=== PATIENT | female | born 1950 | race Caucasian/White ===

== ENCOUNTER → 2016-12-18 | Outpatient (CLI) | payer MEDICARE, BC ==
[~2016-12-18] MED LIST: ALLERGY MEDICAT25 MG PO; BLOOD THINNER; CIPRO500 MG PO; CLINDAMYCIN HC300 MG PO; COUMADIN5 MG PO; CRESTOR10 MG PO; CRESTOR20 MG PO; Duragesic 25 M25 MCG TD; ENBREL25 MG SC; HUMIRA40 MG/0.3 SQ; INVOKANA100 MG PO; INVOKANA300 M1 PO; LISINOPRIL20 MG PO; MEDROL4 M1 PO; METFORMIN1000 MG PO; MYSOLINE50 MG PO; NITROSTAT0.4 MG SL; OCUVITE1 TA1 PO; ONGLYZA5 MG PO; ORASONE5 MG PO; OTEZLA PO; OXYCODONE AND A1 CA1 PO; OXYCODONE AND A1 TA4 PO; PERCOCET 325 MG1 TA2 PO; PREDNICOT5 MG PO; PRENATAL1 TA3 PO; PROPRANOLOL HCL40 M1 PO; PROPRANOLOL HCL40 MG PO; VENLAFAXINE HY150 MG PO; VITAMIN D PO; ZOLOFT100 MG PO
--- NOTE | ~2016-12-18 | ST ---
[place], [place] EXERCISE STRESS TEST REPORT NAME: RUBY OVALLES UNIT #: [id number] ROOM: DOCTOR: MELISSA NAYLOR MD BIRTHDATE: [birth year] DOS: 12/18/2016 Lexiscan portion of the Lexiscan Cardiolite stress test The patient with chest discomfort. Baseline cardiogram sinus rhythm with left axis deviation, left anterior fascicular block, right bundle branch block with nonspecific ST-T changes. 0.4 mg of Lexiscan, duration of 10 seconds. With Lexiscan, no new EKG changes. The patient had no chest discomfort. No dysrhythmia. Blood pressure and heart rate response was normal. FINAL IMPRESSION: No EKG changes with Lexiscan. No chest pain with Lexiscan. No dysrhythmia with Lexiscan. Blood pressure and heart rate response was normal. Nuclear images will be reported separately. MELISSA NAYLOR MD CM:STRESS:EXERCISE STRESS TEST REPORT [id number] MELISSA NAYLOR MD
== END | disposition home or self-care (01) ==
LOC: CARD 03:23
DX: I51.7 Cardiomegaly (principal)

== ENCOUNTER → 2017-06-03 | Day surgery (SDC) | payer MEDICARE, BC ==
[2017-05-30 09:37] VITALS: BP 167/92
[2017-05-30 10:30] LABS: BASO # 0.1 10*3/uL (0.0-0.1); BASO % 0.5 % (0.0-1.0); EOS # 0.2 10*3/uL (0.0-0.4); EOS % 1.8 % (1.0-4.0); HEMATOCRIT 41.9 % (37.0-47.0); HEMOGLOBIN 13.8 g/dl (12.0-16.0); LYMPH # 3.2 10*3/uL (1.3-4.4); LYMPH % 30.2 % (27.0-41.0); MEAN CELL VOLUME 89.1 fl (81.0-99.0); MEAN CORPUSCULAR HGB 29.4 pg (27.0-31.0); MEAN CORPUSCULAR HGB CONC 32.9 g/dl (33.0-37.0); MEAN PLATELET VOLUME 10.6 fl (9.6-12.3); MONO # 0.9 10*3/uL (0.1-1.0); MONO % 8.6 % (3.0-9.0); NEUT # 6.2 10*3/uL (2.3-7.9); NEUT % 58.5 % (47.0-73.0); PLATELET COUNT AUTOMATED 217 10*3/uL (130-400); RED CELL DISTRI WIDTH 12.9 % (0-14.5); WHITE BLOOD COUNT 10.6 10*3/uL (4.8-10.8)
[~2017-06-03] VITALS: Ht 157.4 cm; Wt 73.0 kg
[~2017-06-03] MED LIST changes: -CRESTOR10 MG PO; +CRESTOR20 M1 PO; +FISH OIL CONC1000 M1 PO; +MASON NATURAL500 MG PO; +PLAVIX75 M1 PO; +TOUJEO SOL300 UNIT/1 SQ
--- NOTE | ~2017-06-03 | O ---
[place], [place] OPERATIVE NOTE NAME: RUBY OVALLES UNIT #: [id number] ROOM: DOCTOR: CHARLIE PRUITT MD BIRTHDATE: [birth year] DOS: 06/03/2017 PREOPERATIVE DIAGNOSES: Large cluster of left inguinal inclusion cyst, unresponsive to conservative medical therapy and with significant discomfort. POSTOPERATIVE DIAGNOSES: Large cluster of left inguinal inclusion cyst, unresponsive to conservative medical therapy and with significant discomfort. OPERATION: Excision of the cluster of inclusion cyst from the left inguinal area. SURGEON: Charlie Pruitt MD. ANESTHESIA: MAC with 1% lidocaine local anesthetic. ESTIMATED BLOOD LOSS: Minimal. REPLACEMENTS: IV fluids. COMPLICATIONS: There were no complications. CONDITION: The patient's condition to recovery stable. OPERATIVE SUMMARY: The patient was taken to the operating room in supine position. MAC anesthesia, prepped and draped in routine manner. The cluster of inclusion cyst was identified in the left inguinal area. An elliptical incision was made around these, but being careful to remain fairly superficial, obviously due to the important structures just beneath this. The clusters of cyst were excised without complication. After achieving reasonable hemostasis, we reapproximated the subcutaneous tissue with several interrupted 3-0 chromic sutures and then closed the skin with a running subcuticular 3-0 Monocryl suture. Steri-Strips and a dressing were placed. Good hemostasis was noted. The patient was cleaned off, awakened and then transferred to recovery in satisfactory condition with stable vital signs, good hemostasis and stable sponge and instrument count. I should also as an addendum that I did use 1% lidocaine local anesthetic in an effort to try and also help with not only intraoperative discomfort, but also postop pain relief. [place], [place] OPERATIVE NOTE NAME: RUBY OVALLES UNIT #: [id number] ROOM: DOCTOR: CHARLIE PRUITT MD BIRTHDATE: [birth year] CHARLIE PRUITT MD CM:OPRECORD:OPERATIVE NOTE [id number] DANIEL PRUITT MD 06/04/17 0624 interface
--- NOTE | ~2017-06-03 | WRIGHTHP ---
[place], [place] PATIENT HISTORY AND PHYSICAL EXAM NAME: RUBY OVALLES UNIT #: [id number] ROOM: DOCTOR: CHARLIE LOPEZ MD BIRTHDATE: [birth year] DOS: 06/03/2017 HISTORY OF PRESENT ILLNESS: This patient is a 66-year-old white female who was referred by Dr. Epstein with persistence of left inguinal inclusion cysts that have been very resistant to 3 different antibiotic courses of therapy. According to the patient, about 5 years ago, I had helped her again by draining a significant with persistent inguinal inclusion cyst as well. She stated that she had been fine until April when she developed this large and very tender cluster of hard, raised, and occasionally draining inclusion cyst in the left inguinal area. The patient's exam of the same date, 05/27, she did have a cluster of inclusion cysts with three draining sites, one of which was draining a small amount of pus. The area was quite indurated and tender and very nodular in appearance. The patient and I had a good discussion in regard to the valiant effort Dr. Epstein has made to try to eliminate this in a conservative way with warm soaks and antibiotics, but because of the persistence of this situation, the patient and I discussed actually removing this cluster of inclusion cysts and induration and fibrous material around them. Risks and benefits, indications, potential complications and alternatives were reviewed, understanding stated and she did sign the consent. PAST MEDICAL HISTORY: Reveals that of 2 pregnancies and 2 vaginal deliveries, one was stillborn and one was normal. 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 She has had foot surgery in the past and she has had the other inclusion cyst removed from me as I noted above. SOCIAL HISTORY: She quit smoking 3 or 6 months ago. She does not drink. MEDICATIONS: The patient takes lisinopril 20 mg daily for hypertension, metformin 1000 mg b.i.d. for diabetes, Onglyza 5 mg daily for diabetes, Invokana 300 mg daily for diabetes and finally Toujeo SoloStar 300 units/mL daily for her diabetes. REVIEW OF SYSTEMS: Otherwise stable. She has had no other significant contributing factors to the situation. FAMILY HISTORY: Reveals her father with diabetes and heart disease. Mother has diabetes and hypertension. Paternal aunt has colon cancer. PHYSICAL EXAMINATION: GENERAL: Reveals a pleasant white female in no significant distress. VITAL SIGNS: She is 5 feet and 2 inches, 161 pounds, BMI is 29.4, blood pressure 126/78, O2 sats 99% and she has no history of sleep apnea. HEENT: Stable. NECK: Stable. LUNGS: Stable. CARDIAC: Stable. BREASTS: Stable. ABDOMEN: Normal. EXTREMITIES: Grossly intact. [place], [place] PATIENT HISTORY AND PHYSICAL EXAM NAME: RUBY OVALLES UNIT #: [id number] ROOM: DOCTOR: CHARLIE LOPEZ MD BIRTHDATE: [birth year] NEUROLOGIC: Grossly intact. ABDOMEN: In the left inguinal crease, there was a cluster of inclusion cysts that I have described above. GENITOURINARY: External genitalia, vagina and cervix are all normal. Uterus is anteverted and anteflexed, normal size, configuration, nontender and mobile. Adnexa were negative. RECTAL: Negative. ASSESSMENT: The patient with prominent cluster of inclusion cysts with significant induration, draining sites, etc., in the left inguinal area that has not responded to 3 different courses of antibiotics and topical therapy. PLAN: At this time is to go to the operating room and perform an elliptical incision and literally scoop out this cluster of inclusion cysts down to the subcutaneous tissue and then go oversew this area and hopefully provider her some excellent relief. CHARLIE LOPEZ MD CM:HISPHYS:PATIENT HISTORY AND PHYSICAL EXAMINATION [id number] CHARLIE LOPEZ MD 05/31/17 0628 interface
[2017-06-03 12:15] VITALS: BP 151/85
[2017-06-03 13:30] VITALS: BP 92/40
[2017-06-03 13:46] VITALS: BP 102/56
[2017-06-03 13:54] VITALS: BP 104/60
== END | disposition home or self-care (01) ==
LOC: SDC 05-30 09:30
PROVIDERS: Obstetrics & Gynecology
DX: L72.0 Epidermal cyst (principal); E11.9 Type 2 diabetes mellitus without complications; I10 Essential (primary) hypertension; J44.9 Chronic obstructive pulmonary disease, unspecified; E78.00 Pure hypercholesterolemia, unspecified; Z87.891 Personal history of nicotine dependence; I25.2 Old myocardial infarction; Z87.440 Personal history of urinary (tract) infections; F32.9 Major depressive disorder, single episode, unspecified; Z88.0 Allergy status to penicillin; I25.10 Atherosclerotic heart disease of native coronary artery without angina pectoris; Z79.899 Other long term (current) drug therapy; Z79.4 Long term (current) use of insulin; E66.9 Obesity, unspecified; Z68.29 Body mass index [BMI] 29.0-29.9, adult; Z83.3 Family history of diabetes mellitus; Z82.49 Family history of ischemic heart disease and other diseases of the circulatory system

== ENCOUNTER 2017-07-28 16:34 | Emergency (ER) | payer MEDICARE, BC ==
[~2017-07-28] VITALS: Ht 160 cm; Wt 77.1 kg
== END 2017-07-28 17:39 | disposition home or self-care (01) ==
LOC: ED 16:34
DX: M25.471 Effusion, right ankle (principal); M06.9 Rheumatoid arthritis, unspecified; Z88.0 Allergy status to penicillin; Z79.899 Other long term (current) drug therapy

== ENCOUNTER 2018-07-10 21:00 | Emergency (ER) | payer MEDICARE, BC ==
[~2018-07-10] VITALS: Wt 59.0 kg
[2018-07-10] VITALS (26 sets, daily range): BP systolic 70–160; BP diastolic 29–100
--- NOTE | ~2018-07-10 | EKG ---
[place], [place] ELECTROCARDIOGRAM REPORT NAME: RUBY OVALLES UNIT #: [id number] ROOM: DOCTOR: EPIPHANY DRAFT REPORT BIRTHDATE: [birth year] [facility] Test Date: 2018-07-10 Test Time: 21:22:32 Pat Name: RUBY OVALLES Department: ER Room: 2 Gender: F Make Up Arranger: Elizabeth Ramsay : 1950 Requested By: LIO SOLO Order Number: [id number] Reading MD: Jolene Woo MD Measurements Intervals [place] Rate: 88 P: -9 WA: 228 QRS: -48 QRSD: 121 T: 118 QT: 430 QTc: 521 Interpretive Statements Sinus rhythm Prolonged WA interval Nonspecific IVCD with LAD Left ventricular hypertrophy Inferior infarct, old Lateral leads are also involved Baseline wander in lead(s) V1 Electronically Signed On 07-15-2018 11:07:18 PST by Jolene Woo MD CM:EKGRPT:ELECTROCARDIOGRAM REPORT [id number] LIO SOLO MD EPIPHANY DRAFT REPORT LIO SOLO MD
[~2018-07-10 21:00] MED LIST changes: +DOXYCYCLINE100 M3 PO; +PERCOCET 5-3251 EACH PO; +SEPTDS PO
[2018-07-10 21:24] LABS: BILIRUBIN NEGATIVE (NEGATIVE); BLOOD NEGATIVE (NEGATIVE); CLARITY SL CLOUDY (CLEAR); COLOR YELLOW (YELLOW); GLUCOSE 3+ (NEGATIVE); KETONE NEGATIVE (NEGATIVE); LEUKO ESTERASE NEGATIVE (NEGATIVE); NITRITE NEGATIVE (NEGATIVE); UROBILINOGEN 0.2 E.U./dl (0.2-1.0)
[2018-07-10 21:46] LABS: BACTERIA 4+
[2018-07-10 22:11] LABS: HEMATOCRIT 23.5 % (37.0-47.0); HEMOGLOBIN 7.8 g/dl (12.0-16.0); MEAN CELL VOLUME 88.3 fl (81.0-99.0); MEAN CORPUSCULAR HGB 29.3 pg (27.0-31.0); MEAN CORPUSCULAR HGB CONC 33.2 g/dl (33.0-37.0); MEAN PLATELET VOLUME 10.9 fl (9.6-12.3); PLATELET COUNT AUTOMATED 234 10*3/uL (130-400); RED BLOOD COUNT 2.66 10*6/uL (4.10-5.10); RED CELL DISTRI WIDTH 14.7 % (0-14.5); WHITE BLOOD COUNT 23.9 10*3/uL (4.8-10.8)
[2018-07-10 22:21] LABS: ACT PARTIAL THROMBO TIME 28.7 SECONDS (20.8-31.5); INTERNATIONAL NORM RATIO 1.1 (2.0-3.5)
[2018-07-10 22:31] LABS: ALBUMIN 0.8 gm/dl (3.1-4.5); ALKALINE PHOSPHATASE 112 U/L (45-117); BUN 135 mg/dl (7-24); CHLORIDE 99 mmol/L (98-107); CREATININE 3.77 mg/dL (0.55-1.02); LIPASE 426 U/L (73-393); POTASSIUM 4.7 mmol/L (3.5-5.1); SGOT/AST 63 IU/L (3-35); SGPT/ALT 21 U/L (12-78); SODIUM 131 mmol/L (136-145); TOTAL PROTEIN 5.6 gm/dL (6.4-8.2)
[2018-07-10 22:33] LABS: ABG HCO3 7.8 mmol/l (22-26); ABG O2 SATURATION 96.2 % (95-97); ARTERIAL BLOOD GAS PH 7.275 (7.35-7.45); ARTERIAL BLOOD GAS PO2 97.1 mmHg (80-90)
[2018-07-10 22:34] LABS: ABG BASE EXCESS -17.8 mmol/L (-2.0-2.0)
[2018-07-10 22:36] LABS: PLATELET SUFFICIENCY NORMAL (NORMAL); TOTAL CELLS COUNTED 100 #CELLS
[2018-07-10 22:38] LABS: TROPONIN I < 0.015 ng/ml (<0.045)
[2018-07-11 00:01] VITALS: BP 97/50
[2018-07-11 00:07] VITALS: BP 89/39
[2018-07-11 00:13] VITALS: BP 94/44
[2018-07-11 00:49] LABS: TROPONIN I < 0.015 ng/ml (<0.045)
== END 2018-07-11 00:48 | disposition short-term general hospital (02) ==
LOC: ED 21:00 → EDHOLD 23:00 → ED 23:00 → ICCU 23:08 → EDHOLD 23:08 → ED 07-11 00:48
PROVIDERS: Emergency Medicine Emergency Medical Services
DX: A41.9 Sepsis, unspecified organism (principal); R65.20 Severe sepsis without septic shock; E11.10 Type 2 diabetes mellitus with ketoacidosis without coma; N17.9 Acute kidney failure, unspecified; L02.31 Cutaneous abscess of buttock; J44.9 Chronic obstructive pulmonary disease, unspecified; Z88.0 Allergy status to penicillin; Z79.4 Long term (current) use of insulin; Z79.899 Other long term (current) drug therapy